=== PATIENT | female | born 1950 | race Caucasian/White ===

== ENCOUNTER 2017-03-27 07:31 | Outpatient (CLI) | payer MEDICARE ==
--- OUTSIDE RECORDS SUMMARY | 2017-03-27 07:33 | XMS | Clinical Summary ---
:1950 Author Organization [facility] Address [address] [place] [phone] Phone Care Team Providers Name Role Phone Jim Beck Primary Care Provider tel Allergies No Known Allergies Current Medications Prescription Sig. Disp. Refills Start Date End Date Status esomeprazole (NexIUM) 01/21/2017 Active 40 MG capsule ibandronate (BONIVA) 02/13/2017 Active 150 mg tablet SYNTHROID 100 mcg 02/18/2017 Active tablet cholecalciferol, Take 1,000 Active vitamin D3, (VITAMIN Units by mouth D3) 1,000 unit tablet daily. Taking 64416 units B complex-vitamin Take 1 tablet Active C-folic acid (FOLBEE by mouth daily. PLUS 5 MG) 5 mg tablet per tablet amitriptyline (ELAVIL) Take 1 tablet 30 tablet 03/04/2017 03/04/2018 Active 10 MG tablet (10 mg total) by mouth nightly. Active Problems Not on file Encounters Date Type Specialty Care Team Description 03/26/2017 Documentation Gastroenterology Ashwin Leung Follow-up ( called alexandrea CHEATHAM pre michael mccoy no need or precert or preauth for cpt code 18866 pt. will have test @ [facility]. fax order to [phone] call ref no. [phone]) 03/26/2017 Telephone Ashwin Hartley LVN 03/04/2017 Office Visit Gastroenterology Elvin Bowman abdominal pain MD Huber (Primary Dx) from Last 3 Months Family History Medical History Relation Name Comments Celiac disease Mother Relation Name Status Comments Mother Social History Tobacco Use Types Packs/Day Years Used Date Never Smoker Alcohol Use Drinks/Week oz/Week Comments Yes Sex Assigned at Date Recorded Not on file Last Filed Vital Signs Vital Sign Reading Time Taken Blood Pressure 125/72 03/04/2017 3:44 PM CDT Pulse 62 03/04/2017 3:44 PM CDT Temperature 36.6 C (97.8 F) 03/04/2017 3:44 PM CDT Respiratory Rate - - Oxygen Saturation - - Inhaled Oxygen Concentration - - Weight 76.3 kg (168 lb 2 oz) 03/04/2017 3:44 PM CDT Height 180.3 cm (5' 11") 03/04/2017 3:44 PM CDT Body Mass Index 23.45 03/04/2017 3:44 PM CDT Plan of Treatment Date Type Specialty Care Team Description 06/06/2017 Office Visit Gastroenterology Elvin Bowman MD [address] [facility] [address] [place] [address] Health Maintenance Due Date Last Done Comments COLONOSCOPY 01/11/2000 MAMMOGRAM 01/11/2000 ZOSTER VACCINE 2010 PNEUMOCOCCAL POLYSACCHARIDE VACCINE AGE 65 AND OVER 2015 PNEUMOCOCCAL-13 2015 INFLUENZA VACCINE 01/21/2017 Results Not on filefrom Last 3 Months Insurance Payer Benefit Plan / Group Subscriber ID Type Phone Address [employer]ARE [employer] MED[employer]ARE PPO/PFFS/[facility] [id number] PPO [phone] [place] [address]
--- NOTE | 2017-03-27 09:25 | NM ---
HEPATOBILIARY SCAN: Date: 03/27/17 HISTORY: Right upper quadrant pain. Patient had cholecystectomy in 1996. RADIOPHARMACEUTICAL: 5.1 mCi technetium-99m mebrofenin injected intravenously. FINDINGS: There is good tracer extraction by the liver with prompt excretion into the biliary tract and small bowel loops. No tracer extravasation is seen. IMPRESSION: Status post cholecystectomy without evidence of biliary obstruction. POS: RYAN
== END 2017-03-27 07:32 | disposition home or self-care (01) ==
LOC: NM 07:31
DX: R10.11 Right upper quadrant pain (principal); Z90.49 Acquired absence of other specified parts of digestive tract
CPT/HCPCS: 78226; A9537

== ENCOUNTER 2018-06-05 08:11 | Outpatient (CLI) | payer MEDICARE ==
--- NOTE | 2018-06-05 09:38 | BD ---
DEXA BONE MINERAL STUDY: History: Osteoporosis screening. M81.0 age related osteoporosis. Comparison: 2015 Lumbar Spine: BMD (g/cm2) Previous L1 0.840 T-Score: -1.4 0.4 L2 0.934 T-Score: -0.9 1.1 L3 0.960 T-Score: -1.1 0.9 L4 0.934 T-Score: -1.2 1.0 L1-L4 0.919 T-Score: -1.3 0.8 Classification osteopenia. Femoral Neck: 0.747 T-Score: -0.9 0.8 Total Femur: 0.902 T-Score: -0.3 1.1 Classification normal. 10-year fracture risk: Major osteoporotic fracture 22%, hip fracture 2.3%. IMPRESSION: Osteopenia of the lumbar spine with normal bone mineral density of the left femoral neck and hip. POS: TPC
== END 2018-06-05 08:12 | disposition home or self-care (01) ==
LOC: BICMAMMO 08:11
PROVIDERS: ATTEND Internal Medicine Rheumatology
DX: M81.0 Age-related osteoporosis without current pathological fracture (principal); M85.88 Other specified disorders of bone density and structure, other site
CPT/HCPCS: 77080

== ENCOUNTER 2020-07-05 08:16 | Outpatient (CLI) | payer MEDICARE ==
--- NOTE | 2020-07-05 09:02 | BD ---
DEXA BONE MINERAL DENSITY STUDY: HISTORY: Osteoporosis screening. COMPARISON: None. FINDINGS: Lumbar Spine: BMD (g/cm2) L1 0.886 T-Score: -0.9 0.9 L2 0.972 T-Score: -0.5 1.6 L3 0.965 T-Score: -1.1 1.1 L4 0.958 T-Score: -0.9 1.3 L1-L4 0.945 T-Score: -0.9 1.2 Right: Femoral Neck: 0.664 T-Score: -1.5 0.3 Total Femur: 0.774 T-Score: -1.4 0.2 Left: Femoral Neck: 0.778 T-Score: -0.6 1.2 Total Femur: 0.874 T-Score: -0.6 1.0 WHO classification is osteopenia. TEN-YEAR FRACTURE RISK: Major osteoporotic fracture 25% and hip fracture 6.2%. Impression: Osteopenia with fracture risk as above. POS: HOME
== END 2020-07-05 08:17 | disposition home or self-care (01) ==
LOC: BICMAMMO 08:16
PROVIDERS: ATTEND Internal Medicine Rheumatology
DX: M81.0 Age-related osteoporosis without current pathological fracture (principal); M85.89 Other specified disorders of bone density and structure, multiple sites
CPT/HCPCS: 77080

== ENCOUNTER 2023-02-03 07:51 | Outpatient (CLI) | payer MEDICARE | END 2023-02-03 07:52 | disposition home or self-care (01) | LOC: SCSMRI 07:51 | PROVIDERS: ATTEND Internal Medicine Gastroenterology | DX: R79.89 Other specified abnormal findings of blood chemistry (principal) | CPT/HCPCS: 74183 ==